=== PATIENT | male | born 1970 | race Hispanic/Latino ===

== ENCOUNTER 2018-06-10 14:45 | Emergency (ER) | payer SELFPAY ==
--- NOTE | 2018-06-10 16:08 | RAD ---
RIGHT SHOULDER 3 VIEWS: Date: 06/10/18 HISTORY: Pain. COMPARISON: None. FINDINGS: No acute fracture or malalignment. Moderate degenerative changes of acromioclavicular joint. Some ero sions of the greater tuberosity. The ribs are unremarkable. IMPRESSION: 1. No acute fracture or malalignment. 2. Moderate degenerative disease acromioclavicular joint. 3. Small erosions of greater tuberosity suggest rotator cuff arthropathy. POS: [facility]
--- NOTE | 2018-06-10 18:10 | CT ---
CT CERVICAL SPINE NONCONTRAST: HISTORY: Neck pain. FINDINGS: Reversal of the normal lordotic curvature. Disk space narrowing and osteophytosis, most pronounced a t the C6-C7 level, where central canal and foraminal stenoses are also most pronounced. The cervicot horacic junction is intact. No acute fracture or dislocation. IMPRESSION: 1. Prominent degenerative changes, cervical spine, for the patient's age. 2. Central canal and foraminal stenoses, most severe at the C6-C7 level. 3. No acute osseous abnormalities demonstrated. POS: [facility]
== END 2018-06-10 18:26 | disposition home or self-care (01) ==
LOC: ERS 14:45
DX: S43.401A Unspecified sprain of right shoulder joint, initial encounter (principal); M54.12 Radiculopathy, cervical region; I10 Essential (primary) hypertension; E78.5 Hyperlipidemia, unspecified; X50.0XXA Overexertion from strenuous movement or load, initial encounter
CPT/HCPCS: 72125

== ENCOUNTER 2020-03-24 09:35 | Emergency (ER) | payer SELFPAY ==
[2020-03-24] MEDS ORDERED: Ketorolac Tromethamine 30 MG/ML VIAL ONE (10:11)
[2020-03-24] MEDS ORDERED: Cyclobenzaprine 10 MG TAB ONE (10:11)
--- NOTE | 2020-03-24 11:10 | RAD ---
RADIOGRAPH LUMBAR SPINE 4 VIEWS: DATE: 03/24/2020 HISTORY: 49-year-old male with low back pain with bilateral lumbar radiculopathy TECHNIQUE: Standing views. AP, lateral neutral, and lateral flexion and extension. FINDINGS: 5 lumbar-type vertebrae. Right-lateral curvature 13 degrees (measured from inferior endplate T12 to i nferior endplate L4) centered at L2-3. Associated left-sided degenerative disc disease along the concavity of the curvature at L1-2, L2-3, and L3-4. At least mild disc space narrowing at those level s. When compared to the recumbent lateral view obtained approximately 30 minutes ago, the grade 1 anterolisthesis of L5 on S1 becomes worse when the patient stands. This doesn't significant change be tween flexion and extension, but the worsening between the recumbent and standing views constitutes instability. Moderate disc space narrowing and large anterior chronic calcified disc protrusion into the prevertebral space, at L5-S1. Probable bilateral L5 pars interarticularis defects. IMPRESSION: 1) unstable grade 1 spondylolisthesis at L5-S1 due to L5 spondylolysis. 2) high-grade degenerative disc disease at L5-S1. 3) lower grade degenerative disc disease at upper and mid lumbar spine associated with lateral curvat ure.
[2020-03-24] MEDS ORDERED: Dexamethasone 4 MG TAB ONE (11:38)
[2020-03-24] MEDS ORDERED: Dexamethasone 4 mg/ml Vial ONE (11:42)
--- NOTE | 2020-03-24 11:42 | RAD ---
LUMBAR SPINE 3 VIEWS: HISTORY: Bilateral hip and leg pain. FINDINGS: Extensive disk-osteophytosis as well as facet arthrosis. Mild grade I anterolisthesis of L5 on S1 wi th extensive hypertrophic osteophytosis. No acute fracture or dislocation. IMPRESSION: Lumbar spondylosis. Mild grade I anterolisthesis of L5 on S1. Consider followup standing flexion and extension lateral views to evaluate for potential instability. POS: [facility]
--- NOTE | 2020-03-24 12:28 | MRI ---
MRI LUMBAR SPINE NONCONTRAST:: HISTORY: Back pain, 49-year-old male. Bilateral lower extremity radiculopathy. COMPARISON: None FINDINGS: Appropriate T1 marrow signal intensity of the lumbar vertebrae. Lumbar spine vertebral body heights a re maintained. No evidence of an acute fracture. Remote Schmorl's node along the inferior endplate of L1. There is a probable acute Schmorl's node along the superior endplate of L2. There are bilatera l pars defects at L5 with associated 0.8 cm of anterolisthesis of L5 upon S1. There is appropriate signal intensity in the visualized paraspinal muscles and solid organs. Conus medullaris terminates at the mid L1 level endplate of L2. T12-L1:Adequate disc hydration. Mild loss of disc space height. Broad-based disc bulge with mild cent ral canal stenosis. Bilaterally, the neural foramina are patent. There is a small synovial cyst adjacent to the left facet joint, measuring 0.3 cm which minimally encroaches upon the left neural fo ramen. L1-L2:Disc desiccation with mild loss of disc space height. Broad-based disc bulge abuts the thecal s ac. No significant central canal stenosis. Mild bilateral neural foraminal narrowing. L2-L3:Disc desiccation without significant loss of disc space height. No significant posterior disc a bnormality. No significant central canal stenosis. Mild bilateral neural foraminal narrowing. L3-L4:Adequate disc hydration. No significant loss of disc space height. No posterior disc abnormalit y. No significant central canal stenosis. Right neural foramen is patent. Mild to moderate left foraminal narrowing predominantly due to disc material. There does appear to be obscuration of the ex tra foraminal left L3 nerve root secondary to disc material. L4-L5:Adequate disc hydration. No significant loss of disc space height. No posterior disc abnormalit y. No significant central canal stenosis. Mild bilateral neural foraminal narrowing. L5-S1:Disc desiccation with mild loss of disc space height. Broad-based disc bulge with a minimal aniya tral disc herniation and superior disc extrusion do not cause any significant central canal stenosis. There is bilateral facet hypertrophy. There is moderate to severe bilateral foraminal narro wing predominantly due to disc material as well as anterolisthesis. IMPRESSION: 1. Spondylolisthesis and spondylolysis at L5-S1. There is moderate to severe bilateral neural foramin al narrowing. 2. Obscuration of the extra foraminal left L3 nerve root secondary to disc material. 3. Acute Schmorl's node along the superior endplate of L2. Transcribed Date/Time: 03/24/2020 1:11 PM
== END 2020-03-24 14:25 | disposition home or self-care (01) ==
LOC: ERS 09:35
DX: M43.17 Spondylolisthesis, lumbosacral region (principal); M48.061 Spinal stenosis, lumbar region without neurogenic claudication; M47.9 Spondylosis, unspecified; E78.5 Hyperlipidemia, unspecified; I10 Essential (primary) hypertension
CPT/HCPCS: 72100; 72148; 96372; J1100; J1885; J8540

== ENCOUNTER 2023-07-16 08:09 | Inpatient (IN) | payer SELFPAY ==
[2023-07-16 09:52] VITALS: BMI 34.2
[2023-07-16] MEDS ORDERED: Nitroglycerin 0.4 MG TAB (25 Tab Bottle) SL PRN (10:03)
[2023-07-16] MEDS ORDERED: Morphine 2 MG/ML VIAL SLOW IVP PRN (10:03)
[2023-07-16] MEDS ORDERED: Ondansetron PF 4 MG/2 ML Vial IVP PRN (10:08)
[2023-07-16] MEDS ORDERED: Ondansetron ODT 4 MG TAB PO PRN (10:08)
[2023-07-16] MEDS ORDERED: Senokot S 8.6-50 MG TAB PO PRN (10:08)
[2023-07-16] MEDS ORDERED: Labetalol HCl 100 MG/20 ML VIAL SLOW IVP PRN (10:11)
[2023-07-16] MEDS ORDERED: Heparin 10,000 UNITS/ 10 ML VIAL SLOW IVP SCH (10:15)
[2023-07-16] MEDS ORDERED: Lisinopril 5 MG TAB PO SCH (10:15)
[2023-07-16] MEDS ORDERED: Heparin 25,000 units/D5W 500 ML IVPB SCH (10:15)
[2023-07-16] MEDS ORDERED: Metoprolol Tartrate 25 MG TAB PO SCH ×2 (10:15→21:00)
[2023-07-16] MEDS ORDERED: HYDROcodone/Acetaminophen 5/325 mg Tablet PO PRN (10:24)
[2023-07-16] MEDS ORDERED: Magnesium 2 GM/50 ML(in water) 2 GM in Premix Bag 1 BAG IVPB PRN (10:28)
[2023-07-16] MEDS ORDERED: Potassium Chloride 20 MEQ TAB PO SCH (10:30)
[2023-07-16 10:31] LABS: Hematocrit 44.8 % (42.0-52.0); Hemoglobin 15.4 g/dL (14.0-18.0); Platelet Count 269 10x3/uL (130-400)
[2023-07-16 11:04] LABS: Anion Gap 13 mmol/L (10-20); BUN (Urea Nitrogen) 15 mg/dL (8.4-25.7); Calc. Creatinine Clearance 113 mL/min (70-130); Calcium 8.9 mg/dL (7.8-10.44); Carbon Dioxide 23 mmol/L (22-29); Chloride 104 mmol/L (98-107); Estimated GFR 81; Glucose 128 mg/dL (70-105); Magnesium 2.4 mg/dL (1.6-2.6); Potassium 3.6 mmol/L (3.5-5.1); Sodium 136 mmol/L (136-145)
[2023-07-16 11:05] LABS: Troponin I 8.323 ng/mL (< 0.028)
[2023-07-16] MEDS: Nitroglycerin 2% Ointment 1 INCH/1 GM Packet TOP SCH ×2 (11:58→18:15)
[2023-07-16] MEDS ORDERED: FLU VACC QS2023-24(6MOS UP)/PF 60 MCG/0.5 ML SYRINGE IM ONE (12:00)
[2023-07-16 12:01] LABS: Hemoglobin A1c 5.8 % (4.0-6.0)
[2023-07-16] MEDS ORDERED: Heparin 10,000 UNITS/ 10 ML VIAL ONE (13:51)
[2023-07-16] MEDS ORDERED: Verapamil 5 MG/2 ML VIAL ONE (13:51)
[2023-07-16 13:52] LABS: Troponin I 14.346 ng/mL (< 0.028)
[2023-07-16] MEDS ORDERED: Nitroglycerin 50 MG/250 ML BOT 250 ML ONE (13:52)
[2023-07-16] MEDS ORDERED: fentaNYL 50 mcg/mL 1 mL Vial ONE (14:37)
[2023-07-16] MEDS ORDERED: Midazolam HCl 2 mg/2 ml Vial ONE (14:37)
[2023-07-16] MEDS ORDERED: Iopamidol 370 76% 100 ML VIAL ONE (15:00)
[2023-07-16] MEDS ORDERED: hydrALAZINE 20 MG/ML VIAL ONE (15:19)
[2023-07-16] MEDS ORDERED: Morphine 4 MG/ML VIAL ONE (15:38)
[2023-07-16] MEDS ORDERED: TICAGRELOR 90 MG TABLET ONE (16:56)
[2023-07-16] MEDS ORDERED: Nitroglycerin 2% Ointment 1 INCH/1 GM Packet ONE (18:01)
[2023-07-16] MEDS ORDERED: Labetalol HCl 100 MG/20 ML VIAL ONE (18:27)
[2023-07-16] MEDS ORDERED: Morphine 2 MG/ML VIAL ONE (18:42)
[2023-07-16] MEDS: Famotidine 20 MG TAB PO SCH (21:35)
[2023-07-16] MEDS: Atorvastatin Calcium 40 MG TAB PO SCH (21:35)
[2023-07-16] MEDS: Docusate 100 MG CAP PO SCH (21:36)
[2023-07-17] MEDS: Nitroglycerin 2% Ointment 1 INCH/1 GM Packet TOP SCH ×3 (00:31→13:26)
[2023-07-17 05:20] LABS: #Eosinphils 0.1 thou/uL (0.0-0.7); #Monocytes 1.7 thou/uL (0.11-0.59); #Neutrophils 10.5 thou/uL (1.40-6.50); %Basophils 0.3 % (0.0-1.0); %Eosinophils 0.8 % (0.0-10.0); %Lymphocytes 11.8 % (21.0-51.0); %Monocytes 11.9 % (0.0-10.0); %Neutrophils 74.8 % (42.0-75.0); Hematocrit 40.4 % (42.0-52.0); Hemoglobin 13.9 g/dL (14.0-18.0); Mean Corpuscular HGB CONC 34.4 g/dL (32.0-36.0); Mean Corpuscular Hemoglobin 29.9 pg (27.0-31.0); Mean Corpuscular Volume 86.9 fl (78.0-98.0); Mean Platelet Volume 10.5 fL (7.4-10.4); Platelet Count 263 10x3/uL (130-400); RBC Distribution Width 13.6 % (11.5-14.5); Red Blood Cell (RBC) Count 4.65 mill/uL (4.70-6.10); White Blood Cell (WBC) Count 14.1 10x3/uL (4.8-10.8)
[2023-07-17 07:18] LABS: AST (SGOT) 79 U/L (5-34); Albumin 3.8 g/dL (3.5-5.0); Alkaline Phosphatase 104 U/L (40-110); Anion Gap 15 mmol/L (10-20); BUN (Urea Nitrogen) 13 mg/dL (8.4-25.7); Calc. Creatinine Clearance 142 mL/min (70-130); Calcium 8.6 mg/dL (7.8-10.44); Carbon Dioxide 22 mmol/L (22-29); Chloride 105 mmol/L (98-107); Cholesterol 238 mg/dl (< 200 Desired); Estimated GFR 103; Globulin 3.1 g/dL (2.4-3.5); Glucose 98 mg/dL (70-105); Potassium 3.6 mmol/L (3.5-5.1); Protein, Total 6.9 g/dL (6.0-8.3); Sodium 138 mmol/L (136-145); Triglycerides 390 mg/dL (Less than 150)
[2023-07-17 07:19] LABS: ALT (SGPT) 63 U/L (8-55); Cardiac Risk 6.4 (Less than 4.5); HDL Cholesterol 37 mg/dL (>60 Neg Risk); LDL Cholesterol, Calculated 123 mg/dL
[2023-07-17] MEDS: Carvedilol 6.25 MG TAB PO SCH ×2 (08:59→17:45)
[2023-07-17] MEDS ORDERED: Aspirin Chewable 81 MG TAB PO SCH (09:00)
[2023-07-17] MEDS ORDERED: Lisinopril 2.5 MG TAB PO SCH (09:00)
[2023-07-17] MEDS ORDERED: Aspirin 325 mg Enteric Coated Tablet PO SCH (09:00)
[2023-07-17] MEDS ORDERED: Lisinopril 5 MG TAB PO SCH (09:00)
[2023-07-17] MEDS ORDERED: Lisinopril 10 MG TAB PO SCH (09:00)
[2023-07-17] MEDS: Famotidine 20 MG TAB PO SCH ×2 (09:01→21:14)
[2023-07-17] MEDS: Acetaminophen 325 MG TAB PO PRN ×2 (09:01→17:45)
[2023-07-17] MEDS: Aspirin 81 mg Enteric Coated Tablet PO SCH (09:01)
[2023-07-17] MEDS: TICAGRELOR 90 MG TABLET PO SCH ×2 (09:01→21:15)
[2023-07-17] MEDS: Docusate 100 MG CAP PO SCH ×2 (09:02→21:14)
[2023-07-17] MEDS ORDERED: [UNRECOGNIZED DRUG - OTHER] FS PRN (14:01)
[2023-07-17] MEDS ORDERED: Diazepam 5 MG TAB PO PRN (14:01)
[2023-07-17] MEDS: Atorvastatin Calcium 40 MG TAB PO SCH (21:13)
[2023-07-17] MEDS: Lisinopril 10 MG TAB PO SCH (21:14)
[2023-07-18 04:53] LABS: #Basophils 0.1 thou/uL (0.0-0.2); #Eosinphils 0.4 thou/uL (0.0-0.7); #Monocytes 1.3 thou/uL (0.11-0.59); #Neutrophils 4.7 thou/uL (1.40-6.50); %Basophils 0.6 % (0.0-1.0); %Lymphocytes 28.8 % (21.0-51.0); %Neutrophils 52.2 % (42.0-75.0); Hematocrit 42.1 % (42.0-52.0); Hemoglobin 14.4 g/dL (14.0-18.0); Mean Corpuscular HGB CONC 34.2 g/dL (32.0-36.0); Mean Corpuscular Hemoglobin 29.8 pg (27.0-31.0); Mean Platelet Volume 10.5 fL (7.4-10.4); Platelet Count 250 10x3/uL (130-400); RBC Distribution Width 13.2 % (11.5-14.5); Red Blood Cell (RBC) Count 4.84 mill/uL (4.70-6.10); White Blood Cell (WBC) Count 8.9 10x3/uL (4.8-10.8)
[2023-07-18 05:21] LABS: Anion Gap 13 mmol/L (10-20); BUN (Urea Nitrogen) 16 mg/dL (8.4-25.7); Calc. Creatinine Clearance 130 mL/min (70-130); Calcium 8.8 mg/dL (7.8-10.44); Carbon Dioxide 21 mmol/L (22-29); Chloride 105 mmol/L (98-107); Estimated GFR 95; Glucose 119 mg/dL (70-105); Potassium 3.4 mmol/L (3.5-5.1); Sodium 136 mmol/L (136-145)
[2023-07-18] MEDS: Famotidine 20 MG TAB PO SCH ×2 (08:59→20:17)
[2023-07-18] MEDS: Lisinopril 10 MG TAB PO SCH ×2 (08:59→20:18)
[2023-07-18] MEDS: Docusate 100 MG CAP PO SCH ×2 (08:59→20:17)
[2023-07-18] MEDS: Clopidogrel Bisulfate 75 MG TAB PO SCH (08:59)
[2023-07-18] MEDS: Aspirin 81 mg Enteric Coated Tablet PO SCH (08:59)
[2023-07-18] MEDS: Carvedilol 6.25 MG TAB PO SCH ×2 (08:59→16:03)
[2023-07-18 10:06] LABS: Hematocrit 42.3 % (42.0-52.0); Hemoglobin 14.3 g/dL (14.0-18.0); Platelet Count 250 10x3/uL (130-400)
[2023-07-18] MEDS: Atorvastatin Calcium 40 MG TAB PO SCH (20:18)
[2023-07-19 05:15] LABS: #Basophils 0.1 thou/uL (0.0-0.2); #Eosinphils 0.5 thou/uL (0.0-0.7); #Monocytes 1.3 thou/uL (0.11-0.59); #Neutrophils 6.1 thou/uL (1.40-6.50); %Basophils 0.5 % (0.0-1.0); %Eosinophils 4.8 % (0.0-10.0); %Lymphocytes 25.4 % (21.0-51.0); %Monocytes 11.7 % (0.0-10.0); %Neutrophils 56.9 % (42.0-75.0); Hematocrit 41.6 % (42.0-52.0); Mean Corpuscular HGB CONC 33.7 g/dL (32.0-36.0); Mean Corpuscular Hemoglobin 29.7 pg (27.0-31.0); Mean Corpuscular Volume 88.3 fl (78.0-98.0); Mean Platelet Volume 10.7 fL (7.4-10.4); Platelet Count 256 10x3/uL (130-400); RBC Distribution Width 13.1 % (11.5-14.5); Red Blood Cell (RBC) Count 4.71 mill/uL (4.70-6.10); White Blood Cell (WBC) Count 10.7 10x3/uL (4.8-10.8)
[2023-07-19 05:37] LABS: Anion Gap 13 mmol/L (10-20); BUN (Urea Nitrogen) 15 mg/dL (8.4-25.7); Calc. Creatinine Clearance 115 mL/min (70-130); Calcium 8.8 mg/dL (7.8-10.44); Carbon Dioxide 24 mmol/L (22-29); Chloride 104 mmol/L (98-107); Estimated GFR 83; Glucose 133 mg/dL (70-105); Potassium 3.9 mmol/L (3.5-5.1); Sodium 137 mmol/L (136-145)
[2023-07-19] MEDS ORDERED: CEFAZOLIN 2 GM in Sodium Chloride 0.9% 100 ML IVPB SCH (06:00)
[2023-07-19] MEDS: Carvedilol 6.25 MG TAB PO SCH (09:20)
[2023-07-19] MEDS: Lisinopril 10 MG TAB PO SCH (09:20)
[2023-07-19] MEDS: Aspirin 81 mg Enteric Coated Tablet PO SCH (09:20)
[2023-07-19] MEDS: Clopidogrel Bisulfate 75 MG TAB PO SCH (09:20)
[2023-07-19] MEDS: Docusate 100 MG CAP PO SCH (09:20)
[2023-07-19] MEDS: Famotidine 20 MG TAB PO SCH (09:20)
[2023-07-19 10:58] VITALS: BP 170/95; TEMP 97.7
== END 2023-07-19 11:10 | disposition home or self-care (01) | DRG 322 ==
LOC: 2NO 09:31
PROVIDERS: ADMIT Internal Medicine; ATTEND Family Medicine
PROC: 4A023N7 Measurement of Cardiac Sampling and Pressure, Left Heart, Percutaneous Approach (ICD-10-PCS; principal; 2023-07-16)
PROC: 02703DZ Dilation of Coronary Artery, One Artery with Intraluminal Device, Percutaneous Approach (ICD-10-PCS; 2023-07-16)
PROC: B2151ZZ Fluoroscopy of Left Heart using Low Osmolar Contrast (ICD-10-PCS; 2023-07-16)
PROC: B2111ZZ Fluoroscopy of Multiple Coronary Arteries using Low Osmolar Contrast (ICD-10-PCS; 2023-07-16)
DX: I21.4 Non-ST elevation (NSTEMI) myocardial infarction (principal); I16.9 Hypertensive crisis, unspecified; E87.6 Hypokalemia; E78.5 Hyperlipidemia, unspecified; E66.9 Obesity, unspecified; I10 Essential (primary) hypertension; Z68.34 Body mass index [BMI] 34.0-34.9, adult; Z98.890 Other specified postprocedural states; Z82.49 Family history of ischemic heart disease and other diseases of the circulatory system; Z83.3 Family history of diabetes mellitus; Z79.82 Long term (current) use of aspirin; Z79.899 Other long term (current) drug therapy; I25.10 Atherosclerotic heart disease of native coronary artery without angina pectoris
CPT/HCPCS: 36415; 80048; 80053; 80061; 83036; 83735; 85014; 85018; 85025; 85049; 85347; 85730; 86850; 86900; 86901; 92928; 93005; 93010; 93306; 93458; 93798; 99152; 99153; C1769; C1887; J0360; J1644; J2250; J2270; J2272; J3010; Q9967